=== PATIENT | male | born 1975 | race Caucasian/White ===

== ENCOUNTER 2019-07-03 08:16 | Emergency (ER) | payer SELFPAY ==
[~2019-07-03] VITALS: Ht 188 cm; Wt 74.8 kg
[2019-07-03 08:33] VITALS: BP 109/64
[2019-07-03] MEDS ORDERED: MELO7.5T29 PO (08:39)
[2019-07-03] MEDS ORDERED: PRED50TA PO (08:39)
--- NOTE | 2019-07-03 08:41 | PHYS DOC ---
Past History Past Medical History: Bipolar Past Surgical History: No Surgical History Additional Past Surgical Histo: brain tumor resection 2002 Additional Smoking Information: E cigarettes Alcohol Use: None Drug Use: None Adult General Chief Complaint Chief Complaint: SKIN PROBLEM HPI HPI Patient is a 43-year-old male presents complaining of swelling around his right elbow. This started several days ago. There is no pain. No improvement with ibuprofen. Denies any trauma. No numbness or weakness in the fingers or elbow. No fever. Symptoms are mild in intensity.[] Review of Systems Review of Systems Constitutional: Denies fever or chills [] Eyes: Denies change in visual acuity, redness, or eye pain [] HENT: Denies nasal congestion or sore throat [] Respiratory: Denies cough or shortness of breath [] Cardiovascular: No chest pain or palpitations[] GI: Denies abdominal pain, nausea, vomiting, bloody stools or diarrhea [] : Denies dysuria or hematuria [] Musculoskeletal: Denies back pain or joint pain, see history of present illness [] Integument: Denies rash or skin lesions [] Neurologic: Denies headache, focal weakness or sensory changes [] Endocrine: Denies polyuria or polydipsia [] All other systems were reviewed and found to be within normal limits, except as documented in this note. Physical Exam Physical Exam Constitutional: Well developed, well nourished, no acute distress, non-toxic appearance. [] HENT: Normocephalic, atraumatic, bilateral external ears normal, oropharynx moist, no oral exudates, nose normal. [] Eyes: PERRLA, EOMI, conjunctiva normal, no discharge. [] Neck: Normal range of motion, no tenderness, supple, no stridor. [] Cardiovascular:Heart rate regular rhythm, no murmur [] Lungs & Thorax: Bilateral breath sounds clear to auscultation [] Abdomen: Not examined. [] Skin: Warm, dry, no erythema, no rash. [] Back: No tenderness, no CVA tenderness. [] Extremities: Right elbow has swelling in the posterior aspect. There is no erythema. No axillary lymphadenopathy. He is distally neurovascularly intact. Full active range of motion in the elbow to include flexion and extension, pronation and supination. A joint above and joined below were evaluated and were normal. The other 3 extremities show: No tenderness, no cyanosis, no clubbing, ROM intact, no edema. [] Neurologic: Alert and oriented X 3, normal motor function, normal sensory function, no focal deficits noted. [] Psychologic: Affect normal, judgement normal, mood normal. [] EKG EKG [] Radiology/Procedures Radiology/Procedures [] Course & Med Decision Making Course & Med Decision Making Pertinent Labs and Imaging studies reviewed. (See chart for details) ED course: Patient arrived, was placed in bed, and tolerated exam well. Offered treatment to include drainage as well as an x-ray. Patient deferred due to financial issues. We will attempt treatment with oral outpatient medication and compression. Stressed the importance of close follow-up. Patient was discharged in improved condition with all questions answered. Medical decision making: Patient appears to have a bursitis of his right elbow. No evidence of an infectious bursitis at this time. No evidence of neurologic or vascular compromise.[] Dragon Disclaimer Dragon Disclaimer This electronic medical record was generated, in whole or in part, using a voice recognition dictation system. Departure Departure: Impression: Primary Impression: Bursitis of right elbow Disposition: HOME, SELF-CARE Condition: IMPROVED Patient Instructions: Olecranon Bursitis with [facility] Additional Instructions: Follow-up with your regular doctor in 2 days. If you do not have regular doctor a list of local clinics will be provided. Return to the ER if worsening pain, weakness, purulent drainage, or any other concerns. Scripts Prednisone (PREDNISONE) 50 Mg Tablet 1 TAB PO DAILY for INFLAMMATION, #5 TAB Prov: SHAYE NGUYEN DO 07/03/19 Meloxicam (MELOXICAM) 7.5 Mg Tablet 7.5 MG PO DAILY for PAIN, #20 TAB Prov: SHAYE NGUYEN DO 07/03/19 Problem Qualifiers Primary Impression: Bursitis of right elbow Elbow bursitis location: unspecified Qualified Codes: M70.31 - Other bursitis of elbow, right elbow SHAYE NGUYEN DO Jul 03, 2019 08:41
== END 2019-07-03 08:47 | disposition home or self-care (01) ==
LOC: ER 08:16
DX: M70.31 Other bursitis of elbow, right elbow (principal); F31.9 Bipolar disorder, unspecified; F17.200 Nicotine dependence, unspecified, uncomplicated
CPT/HCPCS: 99283